=== PATIENT | male | born 2000 | race Caucasian/White ===

== ENCOUNTER 2025-05-20 01:34 | Emergency (ER) | payer BC ==
[~2025-05-20] VITALS: Ht 185.4 cm; Wt 109.1 kg
[2025-05-20 01:42] VITALS: TEMP 97.7
[2025-05-20 06:20] LABS: CALCIUM, TOTAL 8.7 mg/dL (8.8-10.5); CREATININE 0.83 mg/dL (0.60-1.30); GLOMERULAR FILTR. RATE CALC > 60 mL/min (>60); GLUCOSE,RANDOM 96 mg/dL (70-110); SODIUM SERUM 139 mmol/L (136-145); UREA NITROGEN, BLOOD 15 mg/dL (7-18)
[2025-05-20 06:22] LABS: PLATELET COUNT (AUTO) 211 K/uL (150-450); RED BLOOD CELL COUNT(AUTO) 4.60 MIL/uL (4.50-5.90); RED CELL DISTRIBUTION WIDTH 13.6 % (11.5-14.5); WHITE BLOOD COUNT (AUTO) 9.8 K/uL (4.5-11.0)
[2025-05-20 06:31] VITALS: BP 114/73; PULSE 73; RESP 18; O2SAT 98
[2025-05-20 06:31] LABS: TROPONIN I-HIGH SENSITIVITY Less Than 4 ng/L (<76)
== END 2025-05-20 07:02 | disposition home or self-care (01) ==
LOC: EMS 01:36
DX: R07.89 Other chest pain (principal); R00.2 Palpitations; R42 Dizziness and giddiness; F41.9 Anxiety disorder, unspecified
CPT/HCPCS: 71045; 80048; 84484; 85025; 93005; 99285; 36415-L1; 36415-TC